=== PATIENT | female | born 1950 | race American Indian/Alaskan Native ===

== ENCOUNTER 2020-03-23 17:35 | Emergency (ER) | payer MEDICARE ==
[2020-03-23 18:34] LABS: Basophils % (Auto) 0.7 % (0.0-1.8); Eosinophils # (Auto) 0.1 K/mm3 (0.0-0.4); Eosinophils % (Auto) 2.7 % (0.0-4.3); Hematocrit 38.9 % (30.3-42.9); Hemoglobin 12.8 gm/dl (10.1-14.3); Lymphocytes # (Auto) 1.4 K/mm3 (1.2-5.4); Lymphocytes % (Auto) 37.1 % (13.4-35.0); Mean Corpuscular HGB Conc 33 % (30-34); Mean Corpuscular Volume 90 fl (79-97); Monocytes # (Auto) 0.4 K/mm3 (0.0-0.8); Monocytes % (Auto) 11.5 % (0.0-7.3); Platelet Count 164 K/mm3 (140-440); Red Blood Count 4.31 M/mm3 (3.65-5.03); Red Cell Distribution Width 13.6 % (13.2-15.2)
[2020-03-23 18:59] LABS: INR 1.04 (0.87-1.13)
[2020-03-23 19:00] LABS: Partial Thromboplastin Time 29.2 Sec. (24.2-36.6)
[2020-03-23 19:10] LABS: Alanine Aminotransferase 16 units/L (7-56); Albumin 4.1 g/dL (3.9-5); BUN/Creatinine Ratio 17; Blood Urea Nitrogen 12 mg/dL (7-17); Calcium 9.2 mg/dL (8.4-10.2); Hemolysis Index 9
--- NOTE | 2020-03-23 21:56 | Emergency Department Report ---
ED GI Bleed [facility] - General Chief complaint: GI Bleed Stated complaint: DARK STOOL/BLOOD IN URINE Time Seen by Provider: 03/23/20 19:33 Source: patient, EMS Mode of arrival: Stretcher Limitations: No Limitations - History of Present Illness Initial comments: 69-year-old female with a past medical history of colorectal cancer in remission since 2009 and early onset dementia with previous hysterectomy presents to the hospital complains of blood in stool and feeling strange earlier. Patient states on average she has 3 bowel movements per day. She states she has chronic intermittent blood in her stool for at least 1 year. Today she had a really long approximately 10 cm sized stool with some rectal discomfort and noticed bright red blood with brown stool. She complained of some mild abdominal discomfort with episode. She reports feeling lightheaded after defecation and therefore came to the hospital. She denies nausea, vomiting, fever, or blood in urine. Patient is unclear of how her colorectal cancer was treated in the past. She cannot recall her last colonoscopy. She does have a GI doctor and a primary care doctor her not affiliated with this hospital. GI doctor: Dr. Simental - Related Data Allergies Allergy/AdvReac Type Severity Reaction Status Date / Time acetaminophen [From Percocet] Allergy Unknown Verified 03/23/20 17:42 oxycodone [From Percocet] Allergy Unknown Verified 03/23/20 17:42 Penicillins Allergy Unknown Verified 03/23/20 17:42 ED Review of Systems ROS: Stated complaint: DARK STOOL/BLOOD IN URINE Other details as noted in HPI ED Past Medical Hx - Past Medical History Previous Medical History?: Yes Hx of Cancer: Yes (colorectal cancer 2009) Hx Dementia: Yes (early onset) - Surgical History Past Surgical History?: Yes Additional Surgical History: hysterectomy - Social History Smoking Status: Never Smoker Substance Use Type: Alcohol ED Physical Exam - General Limitations: No Limitations - Other Other exam information: General: No acute distress Head: Atraumatic Eyes: normal appearance ENT: Moist mucous membranes Neck: Normal appearance, no midline tenderness Chest: Clear to auscultation bilaterally CV: Regular rate and rhythm Abdomen: Soft, normal bowel sounds, nontender, nondistended, no rebound or guarding Rectal: No bleeding external hemorrhoids, no gross blood, brown stool guaiac Back: Normal inspection Extremity: Normal inspection, full range of motion Neuro: Alert O x 3, no facial asymmetry, speech clear, no gross motor sensory deficit Psych: Appropriate behavior Skin: No rash ED Course Vital Signs 03/23/20 17:42 Temperature 98.9 F Pulse Rate 70 Respiratory 18 Rate Blood Pressure 161/82 O2 Sat by Pulse 100 Oximetry ED Medical Decision Making - Lab Data Result diagrams: 03/23/20 18:09 03/23/20 18:36 Lab Results 03/23/20 03/23/20 03/23/20 Range/Units 18:09 18:36 18:36 WBC 3.9 L (4.5-11.0) K/mm3 RBC 4.31 (3.65-5.03) M/mm3 Hgb 12.8 (10.1-14.3) gm/dl Hct 38.9 (30.3-42.9) % MCV 90 (79-97) fl MCH 30 (28-32) pg MCHC 33 (30-34) % RDW 13.6 (13.2-15.2) % Plt Count 164 (140-440) K/mm3 Lymph % (Auto) 37.1 H (13.4-35.0) % Rincon % (Auto) 11.5 H (0.0-7.3) % Eos % (Auto) 2.7 (0.0-4.3) % Baso % (Auto) 0.7 (0.0-1.8) % Lymph # 1.4 (1.2-5.4) K/mm3 Rincon # 0.4 (0.0-0.8) K/mm3 Eos # 0.1 (0.0-0.4) K/mm3 Baso # 0.0 (0.0-0.1) K/mm3 Seg Neutrophils % 48.0 (40.0-70.0) % Seg Neutrophils # 1.9 (1.8-7.7) K/mm3 PT 13.7 (12.2-14.9) Sec. INR 1.04 (0.87-1.13) APTT 29.2 (24.2-36.6) Sec. Sodium 139 (137-145) mmol/L Potassium 3.6 (3.6-5.0) mmol/L Chloride 103.6 (98-107) mmol/L Carbon Dioxide 26 (22-30) mmol/L Anion Gap 13 mmol/L BUN 12 (7-17) mg/dL Creatinine 0.7 (0.7-1.2) mg/dL Estimated GFR > 60 ml/min BUN/Creatinine Ratio 17 % Glucose 86 (65-100) mg/dL Calcium 9.2 (8.4-10.2) mg/dL Total Bilirubin 0.40 (0.1-1.2) mg/dL AST 25 (5-40) units/L ALT 16 (7-56) units/L Alkaline Phosphatase 88 (35-129) units/L Total Protein 7.9 (6.3-8.2) g/dL Albumin 4.1 (3.9-5) g/dL Albumin/Globulin Ratio 1.1 % Urine Color (Yellow) Urine Turbidity (Clear) Urine pH (5.0-7.0) Ur Specific Adams (1.003-1.030) Urine Protein (Negative) mg/dL Urine Glucose (UA) (Negative) mg/dL Urine Ketones (Negative) mg/dL Urine Blood (Negative) Urine Nitrite (Negative) Urine Bilirubin (Negative) Urine Urobilinogen (<2.0) mg/dL Ur Leukocyte Esterase (Negative) Urine WBC (Auto) (0.0-6.0) /HPF Urine RBC (Auto) (0.0-6.0) /HPF 04// Range/Units 22:15 WBC (4.5-11.0) K/mm3 RBC (3.65-5.03) M/mm3 Hgb (10.1-14.3) gm/dl Hct (30.3-42.9) % MCV (79-97) fl MCH (28-32) pg MCHC (30-34) % RDW (13.2-15.2) % Plt Count (140-440) K/mm3 Lymph % (Auto) (13.4-35.0) % Rincon % (Auto) (0.0-7.3) % Eos % (Auto) (0.0-4.3) % Baso % (Auto) (0.0-1.8) % Lymph # (1.2-5.4) K/mm3 Rincon # (0.0-0.8) K/mm3 Eos # (0.0-0.4) K/mm3 Baso # (0.0-0.1) K/mm3 Seg Neutrophils % (40.0-70.0) % Seg Neutrophils # (1.8-7.7) K/mm3 PT (12.2-14.9) Sec. INR (0.87-1.13) APTT (24.2-36.6) Sec. Sodium (137-145) mmol/L Potassium (3.6-5.0) mmol/L Chloride (98-107) mmol/L Carbon Dioxide (22-30) mmol/L Anion Gap mmol/L BUN (7-17) mg/dL Creatinine (0.7-1.2) mg/dL Estimated GFR ml/min BUN/Creatinine Ratio % Glucose (65-100) mg/dL Calcium (8.4-10.2) mg/dL Total Bilirubin (0.1-1.2) mg/dL AST (5-40) units/L ALT (7-56) units/L Alkaline Phosphatase (35-129) units/L Total Protein (6.3-8.2) g/dL Albumin (3.9-5) g/dL Albumin/Globulin Ratio % Urine Color Colorless (Yellow) Urine Turbidity Clear (Clear) Urine pH 7.0 (5.0-7.0) Ur Specific Adams 1.005 (1.003-1.030) Urine Protein <15 mg/dl (Negative) mg/dL Urine Glucose (UA) Neg (Negative) mg/dL Urine Ketones Neg (Negative) mg/dL Urine Blood Sm (Negative) Urine Nitrite Neg (Negative) Urine Bilirubin Neg (Negative) Urine Urobilinogen < 2.0 (<2.0) mg/dL Ur Leukocyte Esterase Neg (Negative) Urine WBC (Auto) < 1.0 (0.0-6.0) /HPF Urine RBC (Auto) 1.0 (0.0-6.0) /HPF - Radiology Data Radiology results: report reviewed CT ABDOMEN AND PELVIS WITH CONTRAST INDICATION / CLINICAL INFORMATION: MAIN: Pt claims intermittent bloody stools, Hx of colorectal cancer 100CC OMNI 300 . TECHNIQUE: Axial CT images were obtained through the abdomen and pelvis after 100 mL Omnipaque [address] scans at this location are performed using CT dose reduction for ALARA by means of automated exposure control. COMPARISON: None available. FINDINGS: LOWER CHEST: A few tiny subpleural nodules at the lung bases, for instance a 3 mm pleural-based nodule in the right lower lobe on series 2 image 9 and 4 mm solid nodule in the left lower lobe on image 6. No pleural fluid. Heart size is normal. LIVER: Large hepatic cyst anteriorly measuring 12.3 cm in width. Smaller lobulated cyst of about 3 cm diameter in the right lobe on image 60. BILIARY SYSTEM: Mild intrahepatic biliary dilatation is noted, which may be related to patient age and/or postcholecystectomy state. PANCREAS: No significant abnormality. SPLEEN: No significant abnormality. ADRENALS: No significant abnormality. KIDNEYS and URETERS: No significant abnormality. STOMACH / BOWEL: No significant abnormality. Normal appendix. No significant abnormality is seen in the colon. PERITONEUM: No free fluid. No free air. No fluid collection. LYMPH NODES: No adenopathy. VASCULAR STRUCTURES: No significant abnormality. URINARY BLADDER: No significant abnormality. REPRODUCTIVE ORGANS: Uterus is absent. No significant adnexal abnormality. ADDITIONAL FINDINGS: None. SKELETAL SYSTEM: No significant abnormality. IMPRESSION: 1. No acute abnormality in the abdomen and pelvis. 2. Few tiny subpleural nodules at the lung bases of uncertain significance. Comparison to previous chest CTs would be useful. Otherwise, a full CT of the chest with contrast may be warranted to evaluate for metastasis given the patient's reported history of colorectal cancer. 3. Otherwise, no evidence of metastatic disease. 4. Mild biliary dilatation is probably related to patient age and/or postcholecystectomy state. CHEST 2 VIEWS INDICATION / CLINICAL INFORMATION: abnl chest findings on ct abd/pelvis. COMPARISON: CT abdomen pelvis, 03/23/2020. No prior chest CTs. FINDINGS: SUPPORT DEVICES: None. HEART / MEDIASTINUM: No significant abnormality. LUNGS / PLEURA: No significant pulmonary or pleural abnormality. No pneumothorax. Previously seen tiny subpleural nodules in the right lung base would not be able to be visualized radiographically due to small size. These nodules are more than likely benign even given the history of malignancy. ADDITIONAL FINDINGS: No significant additional findings. IMPRESSION: 1. No acute pulmonary or pleural disease.. - Medical Decision Making Patient is asymptomatic in the ED. No signs of active bleeding. Guaiac negative stool with normal H&H. CT abdomen pelvis without acute findings. Incidental CT chest findings noticed with normal chest x-ray. I discussed patient's work-up and results with both the patient and her son via phone. I stressed the need for outpatient follow-up given her history of colorectal cancer. Also informed of incidental CT lower chest findings and need for outpatient CT chest with IV contrast. Patient will be provided a copy of her labs and imaging results from today so that she may take it both to her primary care doctor and GI doctor for outpatient follow-up. - Differential Diagnosis Cancer, hemorrhoid, anal fissure, anemia, infection Critical Care Time: No Critical care attestation.: If time is entered above; I have spent that time in minutes in the direct care of this critically ill patient, excluding procedure time. ED Disposition Clinical Impression: Rectal bleeding, Abnormal CT scan, chest, History of colorectal cancer Disposition: TO HOME OR SELFCARE Is pt being admited?: No Condition: Stable Instructions: Rectal Bleeding (ED) Additional Instructions: Continue your current medication as prescribed. Follow-up with both your primary care doctor and GI doctor for further work-up and evaluation. Take the copy of the results provided to your doctor for follow-up. There were incidental findings of tiny subpleural nodules at the lung bases on uncertain significance that will require an outpatient CT chest with IV contrast which can be ordered by your doctor. Continue to monitor your stool and return if symptoms worsen as indicated by your discharge instructions. Referrals: PRIMARY CARE, [Primary Care Provider] - 3-5 Days your, GI doctor [Other] - 3-5 Days Time of Disposition: 23:13
--- NOTE | 2020-03-23 22:09 | Cat Scan Report ---
CT ABDOMEN AND PELVIS WITH CONTRAST INDICATION / CLINICAL INFORMATION: MAIN: Pt claims intermittent bloody stools, Hx of colorectal cancer 100CC OMNI 300 . TECHNIQUE: Axial CT images were obtained through the abdomen and pelvis after 100 mL Omnipaque [address] scans at this location are performed using CT dose reduction for ALARA by means of automated exposure control. COMPARISON: None available. FINDINGS: LOWER CHEST: A few tiny subpleural nodules at the lung bases, for instance a 3 mm pleural-based nodul e in the right lower lobe on series 2 image 9 and 4 mm solid nodule in the left lower lobe on image 6 . No pleural fluid. Heart size is normal. LIVER: Large hepatic cyst anteriorly measuring 12.3 cm in width. Smaller lobulated cyst of about 3 cm diameter in the right lobe on image 60. BILIARY SYSTEM: Mild intrahepatic biliary dilatation is noted, which may be related to patient age an d/or postcholecystectomy state. PANCREAS: No significant abnormality. SPLEEN: No significant abnormality. ADRENALS: No significant abnormality. KIDNEYS and URETERS: No significant abnormality. STOMACH / BOWEL: No significant abnormality. Normal appendix. No significant abnormality is seen in t he colon. PERITONEUM: No free fluid. No free air. No fluid collection. LYMPH NODES: No adenopathy. VASCULAR STRUCTURES: No significant abnormality. URINARY BLADDER: No significant abnormality. REPRODUCTIVE ORGANS: Uterus is absent. No significant adnexal abnormality. ADDITIONAL FINDINGS: None. SKELETAL SYSTEM: No significant abnormality. IMPRESSION: 1. No acute abnormality in the abdomen and pelvis. 2. Few tiny subpleural nodules at the lung bases of uncertain significance. Comparison to previous c hest CTs would be useful. Otherwise, a full CT of the chest with contrast may be warranted to evaluat e for metastasis given the patient's reported history of colorectal cancer. 3. Otherwise, no evidence of metastatic disease. 4. Mild biliary dilatation is probably related to patient age and/or postcholecystectomy state. Signer Name: Jose De Jesus Jacobs MD Signed: 03/23/2020 10:05 PM Workstation Name: [id number]
[2020-03-23 22:29] LABS: Bilirubin,Urine NEG (Negative); Blood,Urine SM (Negative); Color,Urine Colorless (Yellow); Protein,Urine <15 mg/dL mg/dL (Negative); Urobilinogen,Urine < 2.0 mg/dL (<2.0); WBC,Urine < 1.0 /HPF (0.0-6.0)
--- NOTE | 2020-03-23 23:00 | XRay Report ---
CHEST 2 VIEWS INDICATION / CLINICAL INFORMATION: abnl chest findings on ct abd/pelvis. COMPARISON: CT abdomen pelvis, 03/23/2020. No prior chest CTs. FINDINGS: SUPPORT DEVICES: None. HEART / MEDIASTINUM: No significant abnormality. LUNGS / PLEURA: No significant pulmonary or pleural abnormality. No pneumothorax. Previously seen tin y subpleural nodules in the right lung base would not be able to be visualized radiographically due t o small size. These nodules are more than likely benign even given the history of malignancy. ADDITIONAL FINDINGS: No significant additional findings. IMPRESSION: 1. No acute pulmonary or pleural disease.. Signer Name: Chanelle Silva MD Signed: 03/23/2020 10:56 PM Workstation Name: [id number]
[2020-03-23 23:39] VITALS: BP 160/83
== END 2020-03-24 00:23 | disposition home or self-care (01) ==
LOC: ED 17:35
DX: K62.5 Hemorrhage of anus and rectum (principal); R93.89 Abnormal findings on diagnostic imaging of other specified body structures; F03.90 Unspecified dementia, unspecified severity, without behavioral disturbance, psychotic disturbance, mood disturbance, and anxiety; Z90.710 Acquired absence of both cervix and uterus; Z88.0 Allergy status to penicillin; Z88.8 Allergy status to other drugs, medicaments and biological substances; Z79.899 Other long term (current) drug therapy; Z85.038 Personal history of other malignant neoplasm of large intestine
CPT/HCPCS: 36415; 71046; 74177; 80053; 81001; 82271; 85025; 85610; 85730; 99285; Q9967